=== PATIENT | female | born 1985 | race African-American/Black ===

== ENCOUNTER 2017-10-06 14:00 | Emergency (ER) | payer OTHER ==
[~2017-10-06] VITALS: Ht 170.2 cm; Wt 90.7 kg
[~2017-10-06 14:00] MED LIST: IBUPROFEN600 MG ORAL; KENALOG 0.1% CR15 GM APPLIC; SILVADENE CREAM50 GM TOP; VISTARIL25 MG ORAL
[2017-10-06] MEDS ORDERED: Lidocaine 1% 10mg/ml/Epi 0.005mg/ml 30ml vial INJ ONE (14:45)
--- NOTE | 2017-10-06 15:37 | Emergency Room Report ---
History of Present Illness General Chief Complaint: Skin Rash/Abscess Source: Patient Present Illness HPI 32 YO Female presents to the ED c/o 04/09 in severity localized pain, swelling, and erythema of Left external vaginal labia. Patient denies swollen tender lymph nodes, fevers, chills. Pain is exacerbated upon walking or palpation. Patient denies recent unprotected intercourse, history of STDs or notable vaginal lesions. She denies and reports that she is currently on Depo -Provera. Pt. reports tried hot compresses with no relief. Denies CP, Palpitations, LOC, AMS, or dizziness. Allergies: Coded Allergies: PENICILLIN (Unverified Allergy, Unknown, 01/16/15) Uncoded Allergies: Leather (Allergy, Unknown, 02/26/15) Patient History Past Medical History: see triage record Past Surgical History: none Pertinent Family History: none Last Menstrual Period: a year ago ( on depo shot) Now: No Reviewed Nursing Documentation: PMH: Agreed; PSxH: Agreed Nursing Documentation-PMH Past Medical History: No Stated History Review of Systems All Other Systems: negative except mentioned in HPI Physical Exam Vital Signs Date Time Temp Pulse Resp B/P (MAP) Pulse Ox O2 Delivery O2 Flow Rate FiO2 10/06/17 14:06 98.8 109 18 129/82 98 Room Air 98.8 Sp02 EP Interpretation: reviewed, normal General Appearance: alert, GCS 15, non-toxic, moderate distress Head: normocephalic, atraumatic ENT: hearing grossly normal, normal voice Neck: full range of motion Respiratory: lungs clear, normal breath sounds, speaking full sentences Cardiovascular #1: regular rate, rhythm Genitourinary: adnexa normal, other - left sided bartholin's abscess- Swelling of the left labia minora and extending into the labia major. erythema, and severe tenderness, no LAD, no open wounds , lesions, or rashes. Musculoskeletal: back normal, gait/station normal, normal range of motion, non- tender Neurologic: alert, oriented x3, responsive, motor strength/tone normal, sensory intact, speech normal, grossly normal Psychiatric: judgement/insight normal Skin: no rash, warm/dry, well hydrated, other - left sided bartholin's abscess - Swelling of the left labia minora and extending into the labia major. erythema , and severe tenderness, no LAD, no open wounds , lesions, or rashes. Procedures Incision and Drainage Incision and Drainage : Consent: Verbal Site: Left vaginal labia I & D Procedure: betadine prep, sterile drapes applied, sterile dressing applied Wound Location: other - vaginal labia-left Wound's Depth, Shape: superficial Wound Length (cm): 1 Wound Explored: contaminated - moderate amt. of purulent drainage is expressed. Anesthesia: Lidocaine w/ Epi Volume Anesthetic (ccs): 2 Splint Applied?: No Sling Applied?: No Patient Tolerated: Well Complications: None Progress Word catheter was inserted to incision site in a sterile fashion, Balloon was inflated with 2 mL of air. Gentle traction was applied to confirm placement and inflation of the balloon. Patient tolerated well with no complications Additional Procedure Procedure Narrative Word catheter was inserted to incision site in a sterile fashion, Balloon was inflated with 2 mL of air. Gentle traction was applied to confirm placement and inflation of the balloon. Patient tolerated well with no complications Medical Decision Making PA Attestation Dr. May is my supervising Physician whom patient management has been discussed with. Diagnostic Impression: Primary Impression: Abscess Additional Impression: Abscess of Bartholin's gland ER Course 32 YO Female presents to the ED c/o 04/09 in severity localized pain, swelling, and erythema of Left external vaginal labia. Patient denies swollen tender lymph nodes, fevers, chills. Pain is exacerbated upon walking or palpation. Patient denies recent unprotected intercourse, history of STDs or notable vaginal lesions. She denies and reports that she is currently on Depo -Provera. Pt. reports tried hot compresses with no relief. Denies CP, Palpitations, LOC, AMS, or dizziness. Ddx considered but are not limited to cellulitis, abscess, cystic acne, necrotizing fasciitis, insect bite. Vital signs: are WNL, pt. is afebrile, repeate VS pt. was febrile at 100.8 H&PE are most consistent with left sided bartholin's abscess- Swelling of the left labia minora and extending into the labia major. erythema, and severe tenderness, no LAD, no open wounds , lesions, or rashes. 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 - Word catheter was placed. -Wound is dressed by technical staff engineer. -Clindamycin PO Discussed with patient that she needs to follow-up with [facility] and 3-5 days. That usually the joseph catheter should expel on its own as its healing however on occasion will require deflation of balloon. Gave patient ED return precautions. Stress the importance of taking oral antibiotics, and finishing them completely. DISCHARGE: At this time pt. is stable for d/c to home. Will provide printed patient care instructions, and any necessary prescriptions. Care plan and follow up instructions have been discussed with the patient prior to discharge. Last Vital Signs Date Time Temp Pulse Resp B/P (MAP) Pulse Ox O2 Delivery O2 Flow Rate FiO2 10/06/17 14:06 98.8 109 18 129/82 98 Room Air 98.8 Disposition: HOME, SELF-CARE Condition: Stable Scripts Ibuprofen* (MOTRIN*) 600 Mg Tablet 600 MG ORAL THREE TIMES A DAY, #30 TAB 0 Refills Prov: Brynn Khan 10/06/17 Clindamycin Hcl (CLINDAMYCIN HCL) 300 Mg Capsule 300 MG ORAL FOUR TIMES A DAY for 7 Days, #28 CAP Prov: Brynn Khan 10/06/17 Referrals: NOT CHOSEN IPA/MD,REFERRING (PCP) Departure Forms: Return to Work Return to Work Date: Oct 10, 2017 Work Restrictions: No Heavy Lifting, No Prolonged Standing Other Restrictions: light duty x 4 days after return. Return to Full Activity: Oct 14, 2017 Patient Instructions: Abscess, Bartholin Cyst or Abscess Additional Instructions: Take medications as directed. Follow up with a Primary Care Provider or OBGYN in 3-5 days, even if your symptoms have resolved. --Please review list of primary care clinics, if you do not already have a primary care provider Return sooner to ED if new symptoms occur, or current symptoms become worse. - Please note that this Emergency Department Report was dictated using [employer] usage meter clerk technology software, occasionally this can lead to erroneous entry secondary to interpretation by the dictation equipment. Brynn Khan Oct 06, 2017 15:37
[2017-10-06] MEDS ORDERED: IBUPROFEN600 MG ORAL (15:40)
[2017-10-06] MEDS ORDERED: CLINDAMYCIN HC300 MG ORAL (15:40)
[2017-10-06] MEDS ORDERED: HYDROcodone/Acetamin 7.5/325 tab ORAL ONE (15:45)
[2017-10-06] MEDS ORDERED: Clindamycin 150mg cap ORAL ONE (16:15)
[2017-10-06] MEDS ORDERED: Clindamycin 150mg cap ONE (16:34)
[2017-10-06 16:40] VITALS: BP 116/75
== END 2017-10-06 16:40 | disposition home or self-care (01) ==
LOC: EMR 14:30
DX: N76.4 Abscess of vulva (principal); N75.1 Abscess of Bartholin's gland
CPT/HCPCS: 10060; 99284

== ENCOUNTER 2017-10-10 13:42 | Emergency (ER) | payer OTHER ==
[~2017-10-10] VITALS: Ht 170.2 cm; Wt 90.7 kg
[~2017-10-10 13:42] MED LIST changes: +CLINDAMYCIN HC300 MG ORAL
--- NOTE | 2017-10-10 14:33 | Emergency Room Report ---
History of Present Illness General Chief Complaint: Skin Rash/Abscess Source: Patient, Medical Record Present Illness HPI 32 yo female patient presents to ER complaining of hives since yesterday. Reports pruritic hives "all over body". Reports symptoms improved since that time without taking any medication at home. Reports mild pruritus still persists. Seen in ER 4 days ago for Bartholin cyst rupture, currently taking Clindamycin, patient expressed concern for allergy to medication. Denies drainage x2 days. Reports catheter fell out. Reports word catheter fell out on its own. Reports feeling better. Denies worsening of pain or swelling symptoms. Denies pain with ambulation. Denies new detergents or soaps. Denies fever, chest pain, SOB, tongue swelling, neck pain. Denies vaginal discharge, dysuria, hematuria, abdominal pain. Denies nausea, vomiting, diarrhea. Allergies: Coded Allergies: PENICILLIN (Unverified Allergy, Unknown, 01/16/15) Uncoded Allergies: Leather (Allergy, Unknown, 02/26/15) Patient History Past Medical History: see triage record Last Menstrual Period: yr ago. on control Reviewed Nursing Documentation: PMH: Agreed; PSxH: Agreed Nursing Documentation-PMH Past Medical History: No History, Except For Review of Systems All Other Systems: negative except mentioned in HPI Physical Exam Vital Signs Date Time Temp Pulse Resp B/P (MAP) Pulse Ox O2 Delivery O2 Flow Rate FiO2 10/10/17 13:49 98.5 89 18 111/72 98 Room Air 98.4 Sp02 EP Interpretation: reviewed, normal General Appearance: well appearing, no apparent distress, alert, GCS 15, non- toxic Head: normocephalic, atraumatic Eyes: bilateral eye normal inspection, bilateral eye PERRL ENT: hearing grossly normal, normal pharynx, no angioedema, normal voice, uvula midline, moist mucus membranes Neck: full range of motion Respiratory: lungs clear, normal breath sounds, no rhonchi, no respiratory distress, no accessory muscle use, no wheezing, speaking full sentences Cardiovascular #1: regular rate, rhythm, no edema Genitourinary: no CVA tenderness, ext genitalia/vag normal, other - left sided external genitalia: swelling of the left labia minora and extending into the labia major, no erythema, no TTP, no LAD, no open wounds , lesions, or rashes, no drainage, no word catheter Musculoskeletal: back normal, digits/nails normal, gait/station normal, normal range of motion, non-tender Neurologic: alert, oriented x3, responsive, motor strength/tone normal, sensory intact Psychiatric: mood/affect normal Skin: rash - maculopapular eruption, mild erythema, no TTP on arms, shoulder, back Medical Decision Making PA Attestation Dr. Espinoza is my supervising Physician whom patient management has been discussed with. Diagnostic Impression: Primary Impression: Infection of Bartholin's gland Additional Impression: Allergic reaction ER Course Pt presents to ED c/o rash. DDX considered but are not limited to rash, atopic dermatitis, contact dermatitis, allergic reaction. VITAL SIGNS are WNL, patient is afebrile. Ordered Benadryl. ER COURSE Informed patient to discontinue Clindamycin. Will treat as possible allergy to Clindamycin medication. Do not take Clindamycin any more. Will provide patient with rx for Doxycycline, will provide additional coverage for MRSA and if STI is potential cause of infection. Consult with Brynn Khan, provider for initial examination of Bartholin cyst , agrees to treatment plan. Patient OK to return to work. Patient reports understanding and agreement to treatment plan. Patient instructed to followup at scheduled appointment. Patient reports feeling better. Patient OK for discharge, ambulating without difficulty, nontoxic appearing. DISCHARGE: Rx provided for Doxycycline Declined need for rx for Benadryl, reports she will buy OTC. At this time pt is stable for d/c to home. Patient resting comfortably in no acute distress, nontoxic appearing, talking and laughing without difficulty. Will provide with patient care instructions and any necessary prescriptions. Patient to take medication as instructed. Care plan and follow-up instructions provided. Patient questions asked and answered. Patient reports understanding and agreement to treatment plan. Patient instructed to follow-up with primary care provider at scheduled appointment. ER precautions given. Patient instructed to return to ER immediately for any new or worsening of symptoms. Last Vital Signs Date Time Temp Pulse Resp B/P (MAP) Pulse Ox O2 Delivery O2 Flow Rate FiO2 10/10/17 13:49 98.5 89 18 111/72 98 Room Air 98.4 Disposition: HOME, SELF-CARE Condition: Stable Scripts Doxycycline Hyclate* (VIBRAMYCIN*) 100 Mg Capsule 100 MG ORAL EVERY 12 HOURS, #14 CAP 0 Refills Prov: Uche Evans 10/10/17 Referrals: NOT CHOSEN [facility]/,REFERRING (PCP) Patient Instructions: Bartholin Cyst or Abscess, [id number], Drug Allergy, [id number] Additional Instructions: Followup with primary care provider at scheduled appointment. Take medications as directed. Discontinue Clindamycin. Take Benadryl for itching. SE may cause drowsiness, do not take prior to drinking, driving, or operating heavy machinery. Patient questions asked and answered. ER precautions given, patient instructed to return to ER immediately for any new or worsening of symptoms. Uche Evans Oct 10, 2017 14:33
[2017-10-10] MEDS ORDERED: VIBRAMYCIN100 MG ORAL (14:48)
[2017-10-10 15:03] VITALS: BP 111/72
== END 2017-10-10 15:03 | disposition home or self-care (01) ==
LOC: EMR 14:06
DX: N75.8 Other diseases of Bartholin's gland (principal); R21 Rash and other nonspecific skin eruption; T78.40XA Allergy, unspecified, initial encounter; X58.XXXA Exposure to other specified factors, initial encounter; Z88.0 Allergy status to penicillin; Z91.048 Other nonmedicinal substance allergy status
CPT/HCPCS: 99283